=== PATIENT | male | born 1980 | race Caucasian/White ===

== ENCOUNTER 2018-05-13 11:25 | Emergency (ER) | payer OTHER ==
[2018-05-13 11:41] VITALS: BP 121/81; PULSE 68; O2SAT 97
--- NOTE | 2018-05-13 12:18 | XRAY ---
Indication: Pain. History patellar fracture with hardware removal May 07, 2018. Comparison: CT right knee April 10, 2018. 3 views of the right knee demonstrates continued healing infrapatellar fracture with stable tiny heterotopic ossification. Interval removal of orthopedic hardware with new anterior soft tissue swelling. Stable fabella. No other bony, articular, or soft tissue abnormalities.
[2018-05-13 12:46] LABS: BASOPHIL % 0.4 % (0.0-0.4); Basophil (Absolute #) 0.04 (0-0.4); Eosinophil % 2.1 % (0.00-5.0); Eosinophil (Absolute #) 0.19 (0-0.5); Granulocyte Absolute (ANC) 5.46 (1.4-6.9); Hematocrit 49.9 % (42-50); Hemoglobin 16.8 gm/dl (12.5-18.0); Lymphocyte (Absolute #) 2.29 (1.0-4.6); Lymphocytes % 25.2 % (24.0-44.0); Mean Cell Volume 93.8 fl (78-100); Mean Corpuscular Hemoglobin 31.6 pg (26-32); Mean Corpuscular Hgb Concent. 33.7 g/dl (32-36); Mean Platelet Volume 10.5 fl (6-9.5); Monocyte (Absolute #) 1.12 (0.0-1.3); Monocytes % 12.3 % (0.0-12.0); Platelet Count 266 K/mm3 (150-450); Red Blood Count 5.32 M/mm3 (4.1-5.6); Red Cell Distribution Width 13.6 % (11.5-14.0); White Blood Count 9.1 K/mm3 (4.0-10.5)
[2018-05-13 12:57] LABS: ANION GAP 12.7 MEQ/L (5-15); BLOOD UREA NITROGEN 14 mg/dL (9-20); CHLORIDE 101 mmol/L (98-107); Calcium 9.5 mg/dL (8.4-10.2); Carbon Dioxide 30 mmol/L (22-30); Creatinine 1 1.02 mg/dL (0.66-1.25); Glucose 93 mg/dL (74-106); Potassium 4.6 mmol/L (3.5-5.1); SODIUM 139 mmol/L (137-145)
--- NOTE | 2018-05-13 13:47 | XRAY ---
Indication: Right knee pain. History of patellar fracture with hardware removal May 07, 2018. Possible clot. Conventional contrast enhanced CTA of the entire right leg performed using 100 cc Isovue 370 contrast. Two-dimensional sagittal and coronal reformatted images obtained. Additional 3-dimensional reformatted images obtained using a separate workstation. Comparison: None Normal CTA appearance to the common femoral, deep femoral, superficial femoral, popliteal, and trifurcation vessels with normal runoff into the right foot. Healing nondisplaced right infrapatellar fracture with radiolucencies from previous orthopedic hardware and tiny inferior heterotopic ossification. Anterior prepatellar soft tissue swelling presumed related to recent surgery. Knee articulation intact with small effusion. Small posterior lateral condyle fabella. No acute fracture, suspicious bony lesions, or radiopaque foreign body. There are bilateral scrotal vasectomy clips and a few benign-appearing right inguinal lymph nodes. Remaining visualized soft tissues including pelvic contents are unremarkable. Impression: 1. Normal CTA right leg. 2. Healing nondisplaced patellar fracture with effusion as detailed. Prepatellar soft tissue swelling presumed related to recent surgery. 3. Venous ultrasound may yield further information if there is further concern for clot/DVT. CT DI 13.75
--- NOTE | 2018-05-13 14:32 | ERPHSYRPT ---
- History of Present Illness Time Seen by Provider: 05/13/18 11:55 Source: patient Exam Limitations: no limitations Patient Subjective Stated Complaint: Had hardware removal of the right knee with a scope and now has severe pain in the back of the leg at the bend and upward, Pt had fallen on Friday and hit his knee on the wall and it has hurt since then Triage Nursing Assessment: Pt c/o of posterior right leg pain behind the knee, had hardware removal surgery on 05/07/2018 and fell on Friday and hit his knee into the wall causing the back side to hurt, vitals wnl, pulses good, rates pain 01/16 Physician History: Pt is a 38 y/o male that had a patella fx, that was surgically repaired, and hardware was placed. Pt had a surgical removal of hardware on 05/07/18. Pt started developing pain in the back of his R leg, and he states, that he fell on the R knee recently. The pain was so severe, that he could not have any PT done. Pt denies F/C/S. No SOB or cough. No N/V/D or abdominal pain. No tenderness on sides of the knee. Method of Injury: fell Occurred: days ago Quality: constant Severity of Pain-Max: severe Lower Extremities Pain: knee: right Modifying Factors: Improves With: nothing Associated Symptoms: unable to bear weight Allergies/Adverse Reactions: Penicillins Allergy (Verified 05/22/18 16:43) Home Medications: Hydrocodone/APAP 10/325 mg [[place] 10/325 MG Tablet] 1 tab QID 05/22/18 [ History] - Review of Systems Constitutional: No Fever, No Chills Eyes: No Symptoms Ears, Nose, & Throat: No Symptoms Respiratory: No Cough, No Dyspnea Cardiac: No Chest Pain, No Edema, No Syncope Abdominal/Gastrointestinal: No Abdominal Pain, No Nausea, No Vomiting, No Diarrhea Genitourinary Symptoms: No Dysuria Musculoskeletal: Fall, Joint Redness, Joint Pain, Joint Swelling Skin: No Rash Neurological: No Dizziness, No Focal Weakness, No Sensory Changes Psychological: No Symptoms Endocrine: No Symptoms All Other Systems: Reviewed and Negative - Past Medical History Pertinent Past Medical History: Yes Neurological History: Migraines Cardiac History: No Pertinent History Respiratory History: Asthma, COPD Endocrine Medical History: No Pertinent History Musculoskeletal History: No Pertinent History Other Medical History: R patellar fx 08/02/17, 08/05/17 he had surgery, 04/27/18 for hardware removal. - Past Surgical History Past Surgical History: Yes Musculoskeletal: Orthopedic Surgery - Social History Smoking Status: Current every day smoker How long have you smoked: 22 years Exposure to second hand smoke: No Drug Use: none Patient Lives Alone: No - Nursing Vital Signs Nursing Vital Signs: Initial Vital Signs Temperature 98.6 F 05/13/18 11:31 Pulse Rate 68 05/13/18 11:31 Blood Pressure 121/81 05/13/18 11:31 O2 Sat by Pulse Oximetry 97 05/13/18 11:31 Pain Scale Pain Intensity 6 - Physical Exam General Appearance: alert Eyes, Ears, Nose, Throat Exam: moist mucous membranes Neck Exam: normal inspection Cardiovascular/Respiratory Exam: chest non-tender, normal breath sounds, regular rate/rhythm, no respiratory distress Gastrointestinal/Abdominal Exam: non-tender Legs Exam: right leg: limited range of motion, pain, soft tissue tenderness Knees Exam: right knee: bone tenderness, pain, soft tissue tenderness Neuro/Tendon Exam: normal sensation, normal motor functions Mental Status Exam: alert, oriented x 3, cooperative SpO2: 97 Oxygen Delivery: Room Air - Radiology Exams Knee X-ray Interpretation: Reviewed by me (Stable javie[place]ka. No other bony, articular , or soft tissue abnormalities.) - CT Exams Right CT Interpretation: Other (prepattelar soft tissue swelling, healing nondisplaced pattelar fx with effusion.) - Radiology Ultrasound Exam Right Venous Lower Extremity Ultrasound: Other (DVT of gastroc) Ordered Tests: Medication Summary Discontinued Medications Generic Name Dose Route Start Last Admin Trade Name Pelonq PRN Reason Stop Dose Admin Enoxaparin Sodium 100 mg 05/13/18 14:45 05/13/18 14:48 Enoxaparin Sodium 1 mg/kg (100 mg) 06/12/18 14:44 100 mg SQ Administration Q12H GLENN Enoxaparin Sodium Confirm 05/13/18 14:47 Enoxaparin Sodium Administered 05/13/18 14:48 Dose 120 mg SQ .STK-MED ONE Lab/Rad Data: Laboratory Result Diagrams 05/13/18 12:15 05/13/18 12:38 Laboratory Results 05/13/18 05/13/18 Range/Units 12:38 12:15 WBC 9.1 (4.0-10.5) K/mm3 RBC 5.32 (4.1-5.6) M/mm3 Hgb 16.8 (12.5-18.0) gm/dl Hct 49.9 (42-50) % MCV 93.8 (78-100) fl MCH 31.6 (26-32) pg MCHC 33.7 (32-36) g/dl RDW 13.6 (11.5-14.0) % Plt Count 266 (150-450) K/mm3 MPV 10.5 H (6-9.5) fl Gran % 60.0 (36.0-66.0) % Eos # (Auto) 0.19 (0-0.5) Absolute Lymphs (auto) 2.29 (1.0-4.6) Absolute Monos (auto) 1.12 (0.0-1.3) Lymphocytes % 25.2 (24.0-44.0) % Monocytes % 12.3 H (0.0-12.0) % Eosinophils % 2.1 (0.00-5.0) % Basophils % 0.4 (0.0-0.4) % Absolute Granulocytes 5.46 (1.4-6.9) Basophils # 0.04 (0-0.4) Sodium 139 (137-145) mmol/L Potassium 4.6 (3.5-5.1) mmol/L Chloride 101 (98-107) mmol/L Carbon Dioxide 30 (22-30) mmol/L Anion Gap 12.7 (5-15) MEQ/L BUN 14 (9-20) mg/dL Creatinine 1.02 (0.66-1.25) mg/dL Estimated GFR > 60.0 ML/MIN Glucose 93 (74-106) mg/dL Calcium 9.5 (8.4-10.2) mg/dL - Progress Progress: unchanged Will see patient in: office Counseled pt/family regarding: lab results, diagnosis, need for follow-up - Departure Time of Disposition: 02:40 Departure Disposition: Home Clinical Impression: Knee pain, acute Condition: Stable Critical Care Time: No Referrals: IVAN BEGUM [Primary Care Provider] - Prescriptions: Apixaban [Eliquis] 5 mg PO BID 30 Days #1 tab.ds.pk
[2018-05-13] MEDS ORDERED: ENOXAPARIN SODIUM SQ SCH (14:45)
[2018-05-13] MEDS ORDERED: ENOXAPARIN SODIUM SQ ONE (14:47)
--- NOTE | 2018-05-13 14:53 | XRAY ---
Indication: Pain pain following recent knee surgery. Two-dimensional sonogram and color Doppler imaging of the major venous vessels of the right leg was performed. Comparison: None There is occluding thrombus in a gastrocnemius vein. No other thrombus seen in the examined deep venous vessels of the right leg including greater saphenous vein. Patent veins demonstrate normal compressibility. Venous waveforms are normal with and without augmentation. Small thin 4.2 x 2.7 x 0.5 cm Pacheco's cyst. Impression: 1. Occluding DVT in gastrocnemius vein. 2. Incidental small Pacheco's cyst.
== END 2018-05-13 15:02 | disposition home or self-care (01) ==
LOC: ED 11:25
DX: M25.561 Pain in right knee (principal); Z98.890 Other specified postprocedural states; W01.198A Fall on same level from slipping, tripping and stumbling with subsequent striking against other object, initial encounter; Z79.899 Other long term (current) drug therapy
CPT/HCPCS: 36000; 36415; 73562; 73706; 80048; 85025; 93971; 96372; 99284; J1650

== ENCOUNTER 2018-05-22 16:23 | Emergency (ER) | payer OTHER ==
--- NOTE | 2018-05-22 17:09 | ERPHSYRPT ---
- History of Present Illness Time Seen by Provider: 05/22/18 16:44 Source: patient Exam Limitations: clinical condition Patient Subjective Stated Complaint: pt here for pain to right leg, was dx last friday with dvt, and is taking eliquis, pt states he had surgery 05/07 on that leg to remove hardware in leg Triage Nursing Assessment: pt alert, walked in with a limp. has healing incision to right knee with dressing, pain is to the calf area Physician History: PATIENT UNDERWENT REMOVAL OF THE RIGHT PATELLA HARDWARE ON DATE 05/07/2018, DIAGNOSED WITH RIGHT CALF DVT ON 05/13/2018. EVALUATED BY ORTHOPEDIC SURGEON TODAY AND COMPLAINS OF INCREASING CALF PAIN AFTER EXCESSIVE WALKING COUPLE OF DAYS AGO. DENIES FEVER, INJURY OR TRAUMA. Method of Injury: other (NONE) Occurred: yesterday Quality: constant, stabbing Severity of Pain-Max: moderate Severity of Pain-Current: moderate Lower Extremities Pain: leg: right Modifying Factors: Improves With: other (WEIGHTS BEARING) Allergies/Adverse Reactions: Penicillins Allergy (Verified 05/22/18 16:43) Home Medications: Hydrocodone/APAP 10/325 mg [[place] 10/325 MG Tablet] 1 tab QID 05/22/18 [ History] Hx Tetanus, Diphtheria Vaccination/Date Given: Yes Hx Influenza Vaccination/Date Given: Yes Hx Pneumococcal Vaccination/Date Given: No Immunizations Up to Date: Yes - Review of Systems Constitutional: No Fever, No Chills Eyes: No Symptoms Ears, Nose, & Throat: No Symptoms Respiratory: No Symptoms, No Cough, No Dyspnea Cardiac: No Symptoms, No Chest Pain, No Edema, No Syncope Abdominal/Gastrointestinal: No Symptoms, No Abdominal Pain, No Nausea, No Vomiting, No Diarrhea Genitourinary Symptoms: No Dysuria Musculoskeletal: Other (RIGHT CALF PAIN), No Back Pain, No Neck Pain Skin: No Rash Neurological: No Dizziness, No Focal Weakness, No Sensory Changes Psychological: No Symptoms Endocrine: No Symptoms All Other Systems: Reviewed and Negative - Past Medical History Pertinent Past Medical History: Yes Neurological History: Migraines Cardiac History: No Pertinent History Respiratory History: Asthma, COPD Endocrine Medical History: No Pertinent History Musculoskeletal History: No Pertinent History Other Medical History: R patellar fx 08/02/17, 08/05/17 he had surgery, 04/27/18 for hardware removal. - Past Surgical History Past Surgical History: Yes Musculoskeletal: Orthopedic Surgery Other Surgical History: removal of hardware 05/07 - Social History Smoking Status: Current every day smoker How long have you smoked: 22 years Exposure to second hand smoke: Yes Drug Use: none Patient Lives Alone: No - Nursing Vital Signs Nursing Vital Signs: Initial Vital Signs Temperature 98.5 F 05/22/18 16:35 Pulse Rate 86 05/22/18 16:35 Respiratory Rate 16 05/22/18 16:35 Blood Pressure 130/82 05/22/18 16:35 O2 Sat by Pulse Oximetry 97 05/22/18 16:35 Pain Scale Pain Intensity 8 - Physical Exam SpO2: 97 Oxygen Delivery: Room Air - Radiology Ultrasound Exam Venous Lower Extremity Ultrasound: discussed w/radiologist (THERE IS NO CHANGE IN THE SIZE AND POSITION OF THE DVT IN THE RIGHT CALF) Ordered Tests: Active Orders 24 hr Category Date Time Status Crutches STAT Care 05/22/18 17:56 Active VENOUS UNILAT/LIMITED EXTREMIT [US] Stat Exams 05/22/18 17:58 Taken - Progress Progress Note: 05/22/18 18:36 PATIENT PROVIDED CRUTCHES Counseled pt/family regarding: diagnosis, need for follow-up - Departure Time of Disposition: 18:55 Departure Disposition: Home Clinical Impression: DVT RIGHT CALF Condition: Stable Critical Care Time: No Referrals: IVAN BEGUM [Primary Care Provider] - Additional Instructions: CONTINUE ELIQUIS DIRECTED. ELEVATE RIGHT LEG HIGHER THAN WAIST WHILE SITTING OR SUPINE POSITION. CONTINUE NORCO FOR PAIN DIRECTED EVERY 6 HOURS FOR PAIN. CONSULT YOUR PRIMARY CARE PROVIDER FOR FOLLOWUP IN 1 WEEK. AMBULATE USING CRUTCHS NONWEIGHT BEARING RIGHT LEG FOR 10 DAYS
[2018-05-22 19:39] VITALS: BP 124/98; PULSE 84; O2SAT 95
--- NOTE | 2018-05-23 08:18 | XRAY ---
Indication: Right calf pain. 2-dimensional sonogram and color Doppler imaging of the major venous vessels of the right leg was performed. Comparison: May 13, 2018. Essentially stable occluding thrombus in a gastrocnemius vein. No thrombus in the remaining deep venous vessels of the right leg including greater saphenous vein. Patent veins demonstrate normal compressibility. Venous waveforms are normal with and without augmentation. Impression: Stable gastrocnemius vein DVT. Comment: Preliminary report was given.
== END 2018-05-22 19:33 | disposition home or self-care (01) ==
LOC: ED 16:23
DX: I82.4Z1 Acute embolism and thrombosis of unspecified deep veins of right distal lower extremity (principal); Z98.890 Other specified postprocedural states; Z79.01 Long term (current) use of anticoagulants; Z79.899 Other long term (current) drug therapy
CPT/HCPCS: 93971; 99283

== ENCOUNTER 2021-12-19 07:38 | Day surgery (SDC) | payer OTHER ==
[2021-12-19] MEDS ORDERED: Sodium Chloride 0.9(Preservative Free) 10 ML IJ ONE (07:39)
[2021-12-19] MEDS ORDERED: Depo-Medrol 40 MG/ML IM ONE (07:39)
[2021-12-19] MEDS ORDERED: Lactated Ringers 1,000 ML IV ONE (08:53)
[2021-12-19] MEDS ORDERED: DIPRIVAN 200 MG/20 ML IV ONE ×2 (08:59→09:09)
[2021-12-19] MEDS ORDERED: Xylocaine-Mpf 2% 5 Ml Vial ONE (09:02)
--- NOTE | 2021-12-19 09:47 | XRAY ---
Indication: Right L4-S1 transforaminal BILL. Intraoperative fluoroscopy provided for 36 seconds. 4 digital spot images submitted for interpretation demonstrates posterior needle tips projecting over the expected right L4 and L5 nerve roots. Small amount of contrast injected for needle tip placement. Correlate with intraoperative findings/report.
--- NOTE | 2021-12-19 11:04 | XRAY ---
36 seconds of fluoroscopy was used in surgery for a right L4-S1 transforaminal IBLL.
== END 2021-12-19 09:28 | disposition home or self-care (01) ==
LOC: SDC-PAIN 07:38
PROVIDERS: ATTEND Psychiatry & Neurology Pain Medicine
DX: M54.16 Radiculopathy, lumbar region (principal); Z79.899 Other long term (current) drug therapy
CPT/HCPCS: 64483; 64484; 72100; 77003; J1030; J2704; Q9966

== ENCOUNTER 2022-03-20 11:26 | Day surgery (SDC) | payer OTHER ==
[2022-03-20] MEDS ORDERED: Sodium Chloride 0.9(Preservative Free) 10 ML IJ ONE (11:27)
[2022-03-20] MEDS ORDERED: Depo-Medrol 40 MG/ML IM ONE (11:27)
[2022-03-20] MEDS ORDERED: DIPRIVAN 200 MG/20 ML IV ONE (13:11)
[2022-03-20] MEDS ORDERED: Lactated Ringers 1,000 ML IV ONE (14:34)
--- NOTE | 2022-03-20 15:18 | XRAY ---
Indication: Right L4-S1 transforaminal BILL. Intraoperative fluoroscopy provided for 31 seconds. 2 digital spot image submitted for interpretation demonstrates posterior needle tips projecting over the expected right L4 and L5 nerve roots. Small amount of contrast injected for needle tip placement. Correlate with intraoperative findings/report.
--- NOTE | 2022-03-20 15:26 | XRAY ---
31 seconds of fluoroscopy was used in surgery for a right L4-S1 transforaminal BILL.
== END 2022-03-20 13:40 | disposition home or self-care (01) ==
LOC: SDC-PAIN 11:26
PROVIDERS: ATTEND Psychiatry & Neurology Pain Medicine
DX: M54.16 Radiculopathy, lumbar region (principal); Z79.899 Other long term (current) drug therapy
CPT/HCPCS: 64483; 64484; 72100; 77003; J1030; J2704; Q9966